=== PATIENT | female | born 1990 | race Caucasian/White ===

== ENCOUNTER 2018-07-11 12:19 | Emergency (ER) | payer OTHER ==
[~2018-07-11] VITALS: Ht 152.4 cm; Wt 54.4 kg
[~2018-07-11 12:19] MED LIST: IBUPROFEN 400400 M1 PO; KEFLEX500 MG PO; NORCO 5-325 TA1 EACH PO; PHENERGAN 25 MG25 M1 PO; PRENATAL; REGLAN 10 MG TA10 MG PO; TRINATE TABLET1 TAB PO
[2018-07-11] MEDS ORDERED: NORCO 5-325 TA1 EACH PO (12:57)
[2018-07-11] MEDS ORDERED: AMOXICILLIN 50500 M1 PO (12:57)
[2018-07-11 13:05] VITALS: BP 135/73
== END 2018-07-11 13:06 | disposition home or self-care (01) ==
LOC: ER 12:19
DX: K02.9 Dental caries, unspecified (principal); F17.210 Nicotine dependence, cigarettes, uncomplicated